=== PATIENT | male | born 1980 | race Caucasian/White ===

== ENCOUNTER 2018-12-17 08:51 | Emergency (ER) | payer BC, OTHER ==
[~2018-12-17] VITALS: Ht 185.4 cm; Wt 117.5 kg
[2018-12-17 09:03] VITALS: BP_SYST 142
[2018-12-17 10:39] LABS: BILIRUBIN,URINE NEGATIVE (NEGATIVE); BLOOD, URINE NEGATIVE (NEGATIVE); CLARITY/URINE CLEAR (CLEAR); COLOR,URINE YELLOW (YELLOW); GLUCOSE,URINE NEGATIVE (NEGATIVE); KETONES,URINE NEGATIVE (NEGATIVE); LEUKOCYTE ESTERASE ,URINE NEGATIVE (NEGATIVE); NITRITE, URINE NEGATIVE (NEGATIVE); PROTEIN URINE NEGATIVE (NEGATIVE); UROBILINOGEN,URINE 0.2 (0.2-1.0)
[2018-12-17 10:44] LABS: EOSINOPHILS % (AUTO) 0.5 % (0.0-4.0); HEMATOCRIT 45.6 % (36-54); HEMOGLOBIN 15.8 g/dL (14.0-18.0); LYMPHOCYTES % (AUTO) 21.2 % (20.5-51.5); MEAN CORPUSCULAR HEMOGLOBIN 32 pg (27-31); MEAN CORPUSCULAR HGB CONC 35 % (32-36); MEAN CORPUSCULAR VOLUME 92 fL (79.0-98.0); MONOCYTES % (AUTO) 9.7 % (1.7-9.3); NEUTROPHILS % (AUTO) 68.2 % (40.0-70.0); PLATELET COUNT (AUTO) 304 K/uL (130-430); RED BLOOD CELL COUNT(AUTO) 4.96 MIL/uL (4.2-6.2); RED CELL DISTRIBUTION WIDTH 12.4 % (9.0-15.0); WHITE BLOOD COUNT (AUTO) 5.6 K/uL (4.8-10.8)
[2018-12-17 10:45] LABS: BASOPHILS % (AUTO) 0.4 % (0.0-2.0); LYMPHOCYTES # (AUTO) 1.2 K/uL (1.0-5.5); MONOCYTES # (AUTO) 0.5 K/uL (0.0-1.0); NEUTROPHILS # (AUTO) 3.9 K/uL (1.8-7.7)
[2018-12-17 11:02] LABS: CALCIUM 9.5 mg/dL (8.4-11.0); CREATININE 0.92 mg/dL (0.55-1.30); POTASSIUM 4.2 mmol/L (3.5-5.1); PROTHROMBIN TIME 10.4 SECS (9.5-12.5)
[2018-12-17 11:07] LABS: ALBUMIN 4.2 g/dL (3.4-4.8); TOTAL BILIRUBIN 0.5 mg/dL (0.0-1.0)
[2018-12-17 12:50] VITALS: BP_SYST 119
== END 2018-12-17 12:50 | disposition home or self-care (01) ==
LOC: SED 08:51
DX: F41.0 Panic disorder [episodic paroxysmal anxiety] (principal); R07.89 Other chest pain; R03.0 Elevated blood-pressure reading, without diagnosis of hypertension
CPT/HCPCS: 36415; 71045; 80053; 81003; 82550-TC; 83880; 84484; 85025; 85379; 85610-TC; 93005; 99284

== ENCOUNTER 2018-12-31 23:52 | Emergency (ER) | payer OTHER ==
[~2018-12-31] VITALS: Ht 185.4 cm; Wt 117.5 kg
[2018-12-31 23:57] VITALS: BP_SYST 137
== END 2019-01-01 00:30 | disposition home or self-care (01) ==
LOC: SED 23:52
DX: R07.89 Other chest pain (principal); R03.0 Elevated blood-pressure reading, without diagnosis of hypertension
CPT/HCPCS: 93005; 99283

== ENCOUNTER 2019-03-18 15:16 | Emergency (ER) | payer OTHER ==
[~2019-03-18] VITALS: Ht 185.4 cm; Wt 108.9 kg
[2019-03-18 15:23] VITALS: BP_SYST 130
[2019-03-18 16:15] VITALS: BP_SYST 118
== END 2019-03-18 16:15 | disposition home or self-care (01) ==
LOC: SED 15:16
DX: R07.89 Other chest pain (principal); F41.9 Anxiety disorder, unspecified; R03.0 Elevated blood-pressure reading, without diagnosis of hypertension
CPT/HCPCS: 93005; 99283

== ENCOUNTER 2022-02-17 10:50 | Emergency (ER) | payer OTHER ==
[~2022-02-17] VITALS: Ht 182.9 cm; Wt 103.4 kg
[2022-02-17 11:00] VITALS: BP_SYST 118
--- NOTE | 2022-02-17 11:00 | NUR ---
Pt triaged; in wating room pending bed availability.
--- NOTE | 2022-02-17 12:55 | NUR ---
Patient to ER bed H1 for evaluation. Side rails up. Report given to Varsha BARKLEY.
--- NOTE | 2022-02-17 12:57 | NUR ---
Pt brought by self, A&Ox4, pt presents to ER with LAC on R eyebrow , states he slip and fell in the kitchen today, denies KO, Nausea or vomiting, bleeding controlled, will cont to monitor.
--- NOTE | 2022-02-17 14:00 | NUR ---
KAITLYN David at bedside examining patient.
[2022-02-17 15:01] VITALS: BP_SYST 134
--- NOTE | 2022-02-17 15:02 | NUR ---
Patient given written and verbal discharge instructions and verbalizes understanding. ER MD discussed with patient the results and treatment provided. Patient in stable condition. ID arm band removed. Patient educated on pain management and to follow up with PMD. Pain Scale 0/10. Opportunity for questions provided and answered. Medication side effect fact sheet provided.
== END 2022-02-17 15:02 | disposition home or self-care (01) ==
LOC: SED 10:50
DX: S01.111A Laceration without foreign body of right eyelid and periocular area, initial encounter (principal); W01.198A Fall on same level from slipping, tripping and stumbling with subsequent striking against other object, initial encounter; Y93.89 Activity, other specified; Y92.89 Other specified places as the place of occurrence of the external cause; Y99.8 Other external cause status
CPT/HCPCS: 99282

== ENCOUNTER 2022-04-14 18:32 | Emergency (ER) | payer OTHER ==
[~2022-04-14] VITALS: Ht 185.4 cm; Wt 104.3 kg
[2022-04-14 18:32] VITALS: BP_SYST 130
--- NOTE | 2022-04-14 18:32 | NUR ---
BROUGHT INTO TRIAGE ROOM AND TRIAGED. EKG DONE IN TRIAGE ROOM AND GIVEN TO DR BAILON FOR EVALUATION. VSS, PT TO WAITING ROOM.
--- NOTE | 2022-04-14 18:33 | NUR ---
DR BAILON AT BEDSIDE FOR EVALUATION
--- NOTE | 2022-04-14 20:41 | NUR ---
Attempted to D/C pt. Pt already left without receiving D/C papers.
== END 2022-04-14 20:41 | disposition home or self-care (01) ==
LOC: SED 18:32
DX: R07.89 Other chest pain (principal); R03.0 Elevated blood-pressure reading, without diagnosis of hypertension; Z79.899 Other long term (current) drug therapy
CPT/HCPCS: 93005; 99281

== ENCOUNTER 2022-07-13 14:55 | Emergency (ER) | payer MEDICAID, OTHER ==
[~2022-07-13] VITALS: Ht 182.9 cm; Wt 104.3 kg
--- NOTE | 2022-07-13 15:00 | NUR ---
Placed in room 04 . Placed on personnel monitor, blood pressure machine and pulse oximeter. To gown for exam. Side rails up. Report given to RUBIA BROWN /ARSENIO RN
[2022-07-13 15:05] VITALS: BP_SYST 135
--- NOTE | 2022-07-13 15:08 | NUR ---
PATIENT BROUGHT IN AMBULATORY FROM HOME COMPLAINING OF CHEST SPASMS, PALPITATIONS AND PAIN STARTING 10 MINS DOCTOR OF NURSE ANESTHESIA PRACTICE. PAIN 4/10. DENIES ANY SOB. AOX4, HX OF AFIB. NO ACUTE DISTRESS NOTED AT THIS TIME.
--- NOTE | 2022-07-13 15:46 | NUR ---
ER at bedside examining patient.
[2022-07-13 16:01] VITALS: BP_SYST 135
--- NOTE | 2022-07-13 16:01 | NUR ---
Patient does not wish to proceed with medical care recommended by Dr. Aguilar. Patient given information related to possible complications, up to and including , which could occur as a result of leaving hospital at this time. Patient verbalizes understanding of risks involved leaving against medical advice. Patient has signed AMA form.
== END 2022-07-13 16:01 | disposition left against medical advice (07) ==
LOC: SED 14:55
DX: K22.4 Dyskinesia of esophagus (principal); F41.9 Anxiety disorder, unspecified; Z79.899 Other long term (current) drug therapy
CPT/HCPCS: 93005; 99283

== ENCOUNTER 2022-07-23 09:03 | Emergency (ER) | payer MEDICAID ==
[~2022-07-23] VITALS: Ht 182.9 cm; Wt 104.8 kg
[2022-07-23 09:05] VITALS: BP_SYST 148
--- NOTE | 2022-07-23 09:05 | NUR ---
Placed in room 3 . Placed on bus monitor, blood pressure machine and pulse oximeter. To gown for exam. Side rails up. Report given to RUBIA DUMONT.
--- NOTE | 2022-07-23 09:07 | NUR ---
ER DR. HENRIQUEZ EXAMINING PT AT THE BEDSIDE
[2022-07-23 09:38] LABS: BASOPHILS % (AUTO) 0.5 % (0.0-2.0); EOSINOPHILS % (AUTO) 0.7 % (0.0-4.0); HEMATOCRIT 41.7 % (36-54); HEMOGLOBIN 14.9 g/dL (14.0-18.0); LYMPHOCYTES # (AUTO) 1.4 K/uL (1.0-5.5); LYMPHOCYTES % (AUTO) 24.6 % (20.5-51.5); MEAN CORPUSCULAR HEMOGLOBIN 33 pg (27-31); MEAN CORPUSCULAR HGB CONC 36 % (32-36); MEAN CORPUSCULAR VOLUME 92 fL (79.0-98.0); MONOCYTES # (AUTO) 0.5 K/uL (0.0-1.0); MONOCYTES % (AUTO) 9.7 % (1.7-9.3); NEUTROPHILS # (AUTO) 3.6 K/uL (1.8-7.7); NEUTROPHILS % (AUTO) 64.5 % (40.0-70.0); PLATELET COUNT (AUTO) 222 K/uL (130-430); RED BLOOD CELL COUNT(AUTO) 4.53 MIL/uL (4.2-6.2); RED CELL DISTRIBUTION WIDTH 12.5 % (9.0-15.0); WHITE BLOOD COUNT (AUTO) 5.5 K/uL (4.8-10.8)
[2022-07-23 09:47] LABS: GLUCOSE 96 mg/dL (70-99)
[2022-07-23 09:54] LABS: ASPARTATE AMINOTRANSFERASE 21 U/L (10-37)
[2022-07-23 10:00] LABS: ANION GAP 5 (5-15); CALCIUM 9.6 mg/dL (8.4-11.0); CHLORIDE 102 mmol/L (98-107); CREATININE 0.93 mg/dL (0.55-1.30); UREA NITROGEN, BLOOD 15 mg/dL (8-21)
[2022-07-23 10:09] LABS: ALANINE AMINOTRANSFERASE 31 U/L (12-78); ALBUMIN 4.1 g/dL (3.4-4.8); TOTAL BILIRUBIN 0.5 mg/dL (0.0-1.0)
[2022-07-23 10:18] LABS: GFR AFRICAN AMERICAN 115 mL/min (>90)
[2022-07-23] MEDS ORDERED: OMEP20CA15 PO (10:27)
--- NOTE | 2022-07-23 10:33 | NUR ---
Patient given written and verbal discharge instructions and verbalizes understanding. ER MD discussed with patient the results and treatment provided. Patient in stable condition. ID arm band removed. Patient educated on pain management and to follow up with PMD. Pain Scale 0. Opportunity for questions provided and answered. Medication side effect fact sheet provided.
[2022-07-23 10:35] VITALS: BP_SYST 134
== END 2022-07-23 10:35 | disposition home or self-care (01) ==
LOC: SED 09:03
DX: K22.4 Dyskinesia of esophagus (principal); R07.89 Other chest pain; Z79.899 Other long term (current) drug therapy
CPT/HCPCS: 36415; 71045; 80053; 84484; 85025; 93005; 99285

== ENCOUNTER 2023-09-23 00:17 | Emergency (ER) | payer MEDICAID ==
[~2023-09-23] VITALS: Ht 195.6 cm; Wt 106.6 kg
[~2023-09-23 00:17] MED LIST: METH-800 PO; OMEP20CA15 PO
[2023-09-23 00:20] VITALS: BP_SYST 126; PULSE 65; RESP 16; TEMP 97.9; O2SAT 100
[2023-09-23 01:00] LABS: BASOPHILS % (AUTO) 0.4 % (0.0-2.0); EOSINOPHILS # (AUTO) 0.1 K/uL (0.0-0.4); EOSINOPHILS % (AUTO) 1.7 % (0.0-4.0); HEMATOCRIT 39.2 % (36-54); HEMOGLOBIN 13.9 g/dL (14.0-18.0); LYMPHOCYTES # (AUTO) 2.1 K/uL (1.0-5.5); LYMPHOCYTES % (AUTO) 30.1 % (20.5-51.5); MEAN CORPUSCULAR HEMOGLOBIN 33 pg (27-31); MEAN CORPUSCULAR HGB CONC 36 % (32-36); MEAN CORPUSCULAR VOLUME 94 fL (79.0-98.0); MONOCYTES # (AUTO) 0.8 K/uL (0.0-1.0); MONOCYTES % (AUTO) 10.9 % (1.7-9.3); NEUTROPHILS # (AUTO) 3.9 K/uL (1.8-7.7); NEUTROPHILS % (AUTO) 56.9 % (40.0-70.0); PLATELET COUNT (AUTO) 232 K/uL (130-430); RED BLOOD CELL COUNT(AUTO) 4.19 MIL/uL (4.2-6.2); RED CELL DISTRIBUTION WIDTH 12.4 % (9.0-15.0); WHITE BLOOD COUNT (AUTO) 6.9 K/uL (4.8-10.8)
[2023-09-23 01:21] LABS: CALCIUM 8.5 mg/dL (8.4-11.0); CREATININE 0.85 mg/dL (0.55-1.30); POTASSIUM 4.1 mmol/L (3.5-5.1)
[2023-09-23] MEDS ORDERED: DICY-14 PO (01:41)
[2023-09-23 01:50] VITALS: BP_SYST 117; PULSE 61; RESP 22; TEMP 98; O2SAT 97
== END 2023-09-23 01:50 | disposition home or self-care (01) ==
LOC: SED 00:17
DX: R07.89 Other chest pain (principal); R06.02 Shortness of breath; Z79.899 Other long term (current) drug therapy
CPT/HCPCS: 36415; 71045; 80048; 83880; 84484; 85025; 93005; 99285